=== PATIENT | female | born 1950 | race Caucasian/White ===

== ENCOUNTER 2023-12-23 13:35 | Observation (INO) | payer OTHER ==
[~2023-12-23] VITALS: Ht 160 cm; Wt 56.7 kg
[2023-12-23 13:35] VITALS: BP_SYST 218; PULSE 89; RESP 17; TEMP 97; O2SAT 84
[2023-12-23] MEDS: hydrALAZINE HCL 20 MG/ML VIAL IVP ONE (14:08)
[2023-12-23] MEDS ORDERED: PROPOFOL DRIP 100 ML IV ONE (14:27)
[2023-12-23] MEDS ORDERED: ATOR-1 PO (14:30)
[2023-12-23] MEDS ORDERED: PANT40TA45 PO (14:30)
[2023-12-23] MEDS ORDERED: GABA-529 PO (14:30)
[2023-12-23] MEDS ORDERED: AMLO5TAB92 PO (14:30)
[2023-12-23] MEDS ORDERED: TOCI162S SUBCUT (14:30)
[2023-12-23] MEDS ORDERED: CILO100T3 PO (14:30)
[2023-12-23] MEDS ORDERED: DONE5TAB33 PO (14:30)
[2023-12-23] MEDS ORDERED: LABE100T8 PO (14:30)
[2023-12-23] MEDS ORDERED: SODI650T PO (14:30)
[2023-12-23] MEDS ORDERED: FERR325T30 PO (14:30)
[2023-12-23] MEDS ORDERED: SODI10PO PO (14:30)
[2023-12-23] MEDS ORDERED: ANAS1TAB51 PO (14:30)
[2023-12-23] MEDS ORDERED: APIX2.5T PO (14:30)
[2023-12-23] MEDS ORDERED: ALLO100T PO (14:30)
[2023-12-23 14:57] LABS: BILIRUBIN,URINE NEGATIVE (NEGATIVE); BLOOD, URINE 1+ (NEGATIVE); CLARITY/URINE CLEAR (CLEAR); COLOR,URINE YELLOW (YELLOW); GLUCOSE,URINE 1+ (NEGATIVE); KETONES,URINE NEGATIVE (NEGATIVE); LEUKOCYTE ESTERASE ,URINE NEGATIVE (NEGATIVE); NITRITE, URINE NEGATIVE (NEGATIVE); PROTEIN URINE 3+ (NEGATIVE); UROBILINOGEN,URINE 0.2 (0.2-1.0)
[2023-12-23 15:17] LABS: ABG O2 SAT% ESTIMATE 99.8 % (94.0-100.0); BLOOD GAS PH 7.369 (7.350-7.450)
[2023-12-23] MEDS: ETOMIDATE 20 MG/ 10 ML VIAL (AMIDATE) IVP ONE (15:18)
[2023-12-23] MEDS: ROCURONIUM BROMIDE 10 MG/ML (ZEMURON) IV ONE (15:18)
[2023-12-23] MEDS: PROPOFOL DRIP 100 ML IV ONE (15:20)
[2023-12-23 15:21] LABS: ALLEN'S TEST POSITIVE (P); BLOOD GAS BASE EXCESS -6.2 mmol/L (-3.0-3.0); BLOOD GAS HCO3 17.9 mmol/L (21.0-27.0); BLOOD GAS PCO2 31.7 mmHg (35.0-45.0); BLOOD GAS PO2 434.5 mmHg (75.0-100.0)
[2023-12-23 15:27] LABS: BARBITURATE, URINE NEGATIVE (NEG <=200); BENZODIAZEPINE, URINE NEGATIVE (NEG <=150); CANNABINOID, URINE NEGATIVE (NEG <=50); COCAINE, URINE NEGATIVE (NEG <=150); METHAMPHETAMINES SCREEN,URINE NEGATIVE (NEG <=500); OPIATE, URINE NEGATIVE (NEG <=100); PHENCYCLIDINE SCREEN,URINE NEGATIVE (NEG <=25); URINE AMPHETAMINE NEGATIVE (NEG <=500); URINE METHADONE NEGATIVE (NEG <=200); URINE OXYCODONE SCREEN NEGATIVE (NEG <=100)
[2023-12-23 15:28] LABS: UR TRICYCLIC ANTIDEPRESSANTS NEGATIVE (NEG <=300)
[2023-12-23] MEDS ORDERED: HUM PROTHROMBIN CPLX(PCC)-LANS 500 UNIT VIAL IV ONE (15:30)
[2023-12-23] MEDS: WATER FOR INJECTION STERILE IV ONE (15:48)
[2023-12-23] MEDS: HUM PROTHROMBIN CPLX LANS IV ONE (15:48)
[2023-12-23 16:01] LABS: BACTERIA,URINE RARE /HPF (None Seen); RBC,URINE 0-3 /HPF (0-3); WBC,URINE 0-3 /HPF (0-3)
[2023-12-23] MEDS ORDERED: MORPHINE SULFATE IN 0.9 % NACL 100 ML IV PRN (16:45)
[2023-12-23] MEDS ORDERED: NALOXONE HCL 0.4 MG/ML AMP (NARCAN) IVP PRN (16:45)
[2023-12-23] MEDS: MORPHINE SULFATE IN 0.9 % NACL 100 ML IV ONE (17:26)
[2023-12-23] MEDS ORDERED: ETOMIDATE 20 MG/ 10 ML VIAL (AMIDATE) ONE (19:00)
[2023-12-23 20:00] VITALS: BP_SYST 153; BP_SYST 174; PULSE 69; RESP 17; RESP 20; TEMP 97.8; O2SAT 0; O2SAT 83; O2SAT 94
[2023-12-23 21:00] VITALS: BP_SYST 153; PULSE 67; RESP 17; O2SAT 83
[2023-12-23 22:00] VITALS: BP_SYST 110; PULSE 88; RESP 36; O2SAT 71
[2023-12-23 23:00] VITALS: BP_SYST 101; PULSE 104; RESP 22; O2SAT 67
[2023-12-24] VITALS: BP_SYST 102; PULSE 80; RESP 18; TEMP 97.2; O2SAT 53; O2SAT 61
[2023-12-24 01:00] VITALS: BP_SYST 105; PULSE 87; RESP 18; O2SAT 53
[2023-12-24 01:30] VITALS: BP_SYST 108; PULSE 91; RESP 20; O2SAT 30
== END 2023-12-24 01:42 ==
LOC: SED 13:35 → INTOOBSV 17:45 → SMU 17:45 → SIC 18:24
PROVIDERS: ADMIT Specialist; ATTEND Specialist
DX: R53.1 Weakness (principal); J44.9 Chronic obstructive pulmonary disease, unspecified; Z86.73 Personal history of transient ischemic attack (TIA), and cerebral infarction without residual deficits; Z79.899 Other long term (current) drug therapy
CPT/HCPCS: 96365; 96366; 96375; 80307; 81000; 81015; 81001; 87081; 93005; 70450; 94002; 36600; 82803; 99285; 96368; J0360; J2704; J2270; G0378 ×2; J3490